=== PATIENT | female | born 1980 ===

== ENCOUNTER 2018-08-14 03:44 | Outpatient (CLI) | payer OTHER ==
[2018-08-14] MEDS ORDERED: LACTATED RINGERS 1,000 ML IV ONE (04:05)
[2018-08-14 04:27] LABS: Hematocrit 28.8 % (30.3-42.9); Hemoglobin 9.5 gm/dl (10.1-14.3); Mean Corpuscular HGB Conc 33 % (30-34); Mean Corpuscular Volume 80 fl (79-97); Red Blood Count 3.59 M/mm3 (3.65-5.03); Red Cell Distribution Width 16.6 % (13.2-15.2)
[2018-08-14 04:39] LABS: Bacteria,Urine 1+ /HPF (Negative); Bilirubin,Urine NEG (Negative); Blood,Urine NEG (Negative); Color,Urine Yellow (Yellow); Mucus,Urine FEW /HPF; Protein,Urine <15 mg/dL mg/dL (Negative); Urobilinogen,Urine < 2.0 mg/dL (<2.0)
[2018-08-14 04:43] LABS: Albumin 3.2 g/dL (3.9-5); BUN/Creatinine Ratio 20; Blood Urea Nitrogen 6 mg/dL (7-17); Calcium 8.8 mg/dL (8.4-10.2); Hemolysis Index 196
[2018-08-14 04:45] LABS: Amphetamine Screen,Urine PRESUMPTIVE NEGATIVE; Benzodiazepines Screen,Urine PRESUMPTIVE NEGATIVE; Cannabinoid Screen,Urine PRESUMPTIVE NEGATIVE; Cocaine Screen,Urine PRESUMPTIVE NEGATIVE; Methadone Screen,Urine PRESUMPTIVE NEGATIVE; Opiate Screen,Urine PRESUMPTIVE NEGATIVE
[2018-08-14 05:45] LABS: Alanine Aminotransferase 29 units/L (7-56)
[2018-08-14 05:47] LABS: Platelet Count 202 K/mm3 (140-440)
[2018-08-14 09:10] VITALS: BP 109/67
--- NOTE | 2018-08-14 09:31 | Ultrasound Report ---
ULTRASOUND ABDOMEN LIMITED: TECHNIQUE: Transabdominal ultrasound with color Doppler interrogation. HISTORY: Right upper quadrant pain and vomiting. COMPARISON: none. FINDINGS: LIVER: The liver is echogenic and attenuates the ultrasound beam consistent with moderate fatty infiltration. No enlargement, mass or surface nodularity. BILIARY SYSTEM: There is a mild degree of non-shadowing debris in the gallbladder consistent with sludge. No evidence for abnormal gallbladder wall thickening or distention. The CBD measures 4 mm. PANCREAS: Partially obscured. No gross abnormality. RIGHT KIDNEY: Normal. PROXIMAL AORTA: Normal. ASCITES: None. IMPRESSION: Moderate fatty infiltration of the liver. Sludge in the gallbladder but no evidence for biliary dilatation or acute cholecystitis.
== END 2018-08-14 11:31 | disposition home or self-care (01) ==
LOC: TRG 03:44
PROVIDERS: ATTEND Obstetrics & Gynecology
DX: K76.0 Fatty (change of) liver, not elsewhere classified (principal)
CPT/HCPCS: 36415; 76705; 80053; 80307; 81001; 84550; 85027